=== PATIENT | male | born 2000 | race Two or more races ===

== ENCOUNTER 2023-01-22 14:10 | Emergency (ER) | payer OTHER ==
[~2023-01-22] VITALS: Ht 177.8 cm; Wt 71.7 kg
[2023-01-22] MEDS ORDERED: [UNRECOGNIZED DRUG - CODE] (14:37)
[2023-01-22] MEDS ORDERED: AZITHROMYCIN1 GM (14:38)
[2023-01-22 17:06] LABS: HEMATOCRIT 53.3 % (39.0-48.0); HEMOGLOBIN 18.5 g/dL (13-16.00); MEAN CELL VOLUME 91.1 fL (80.0-100.00); MEAN CORPUSCULAR HEMOGLOBIN 31.7 pg (27.00-32.0); MEAN CORPUSCULAR HGB CONC 34.7 g/dl (32.0-36.0); RED BLOOD COUNT 5.85 M/uL (4.00-6.00); RED CELL DISTRIBUTION WIDTH 13.2 % (11.5-14.5)
[2023-01-22 17:20] LABS: CALCIUM 8.9 mg/dL (8.5-10.1); CREATININE SERUM 1.05 mg/dL (0.70-1.30); GFR 87.53; POTASSIUM 4.21 mEq/L (3.5-5.1)
[2023-01-22 17:53] LABS: PLATELET COUNT 55 K/uL (150-450)
== END 2023-01-22 22:10 | disposition home or self-care (01) ==
LOC: ER 14:10
PROVIDERS: Emergency Medicine
DX: K52.9 Noninfective gastroenteritis and colitis, unspecified (principal); D69.6 Thrombocytopenia, unspecified